=== PATIENT | female | born 1960 | race Caucasian/White ===

== ENCOUNTER 2021-07-16 20:46 | Emergency (ER) | payer BC ==
[~2021-07-16] VITALS: Ht 160 cm; Wt 81.6 kg
--- NOTE | 2021-07-16 20:58 | NUR ---
PT BIBA TO ER BED VIA [facility]
[2021-07-16 21:16] VITALS: BP 162/96
--- NOTE | 2021-07-16 21:16 | NUR ---
PT PLACED IN ROOM 3.
--- NOTE | 2021-07-16 21:16 | NUR ---
PT 61 YEAR OLD FEMALE. BIBA. ALERT AND ORIENTED X4. COMPLAINING OF N/V SINCE 4 PM TODAY. STATES THAT SHE HAS CRAMPING IN HER STOMACH AND THAT SHE HAS FULL BODY MUSCLE ACHES DUE TO THE CRAMPS. PT REPORTS THAT SHE DID NOT TAKE ANYTHING FOR N/V. DENIES FEVER OR ANY COVID-19 SYMPTOMS. PT HAS A ALLERGY TO [employer] DRUGS. MEDICAL HX HTN, DM2, AND HIGH CHOLESTEROL, THYROID ISSUES, AND NEUROPATHY. PT RECIEVED PO ZOFRAN BY EMS, EMS REPORTS IT HELPED AND PT DID NOT EXPERIENCE N/V IN ROUTE. MEDS: SYNTHROID, PROPANOLOL, TRULICITY, XIGDUO, GABAPENTIN, ATORVASTATIN, ASPARIN, MOTRIN.
--- NOTE | 2021-07-16 21:20 | NUR ---
PT UP TO RESTROOM, STEADY GAIT.
[2021-07-16] MEDS ORDERED: ONDANSETRON 4 MG/2 ML VIAL ONE ×2 (23:20→23:21)
[2021-07-16] MEDS ORDERED: ONDANSETRON 4 MG/2 ML VIAL IVP ONE (23:35)
[2021-07-16] MEDS ORDERED: NACL 0.9% 1,000 ML IV ONE (23:35)
[2021-07-16] MEDS ORDERED: KETOROLAC 30 MG/ML VIAL IVP ONE (23:35)
[2021-07-16] MEDS ORDERED: diphenhydrAMINE 50 MG/ML VIAL IVP ONE (23:35)
[2021-07-16] MEDS ORDERED: PROCHLORPERAZINE 10 MG/2 ML VIAL IVP ONE (23:35)
--- NOTE | 2021-07-16 23:40 | NUR ---
PT UP TO RESTROOM, STEADY GAIT.
--- NOTE | 2021-07-16 23:53 | NUR ---
PT LYING IN BED WITH EYES CLOSED, APPEARS TO BE SLEEPING. EQUAL RISE AND FALL OF CHEST. NO ACUTE DISTRESS NOTED. WILL CONTINUE TO MONITOR PT.
--- NOTE | 2021-07-16 23:56 | NUR ---
RADIOLOGY AT BEDSIDE TO TAKE PT TO CT.
[2021-07-17 00:01] LABS: BASOPHILS % (AUTO) 0.1 % (0.0-2.0); EOSINOPHILS # (AUTO) 0.1 K/uL (0-0.4); EOSINOPHILS % (AUTO) 0.6 % (0.0-4.0); HEMATOCRIT 43.6 % (36-48); HEMOGLOBIN 15.1 g/dL (12.0-16.0); LYMPHOCYTES # (AUTO) 0.3 K/uL (2.5-16.5); LYMPHOCYTES % (AUTO) 3.1 % (20.5-51.1); MEAN CORPUSCULAR HEMOGLOBIN 32 pg (27-31); MEAN CORPUSCULAR HGB CONC 35 g/dL (33-37); MEAN CORPUSCULAR VOLUME 91.9 fL (80-94); MONOCYTES # (AUTO) 0.3 K/uL (0.8-1.0); MONOCYTES % (AUTO) 2.8 % (1.7-9.3); NEUTROPHILS # (AUTO) 9.9 K/uL (1.8-7.7); PLATELET COUNT (AUTO) 271 K/uL (140-450); RED BLOOD CELL COUNT(AUTO) 4.74 MIL/uL (4.20-5.40); RED CELL DISTRIBUTION WIDTH 12.4 % (11.6-13.7); WHITE BLOOD COUNT (AUTO) 10.6 K/uL (4.8-10.8)
--- NOTE | 2021-07-17 00:22 | NUR ---
PT LYING IN BED WITH EYES CLOSED, APPEARS TO BE SLEEPING. RN PROVIDED PT WITH WARM BLANKETS FOR COMFORT. EQUAL RISE AND FALL OF THE CHEST. NO ACUTE DISTRESS NOTED. ALL VS ARE STABLE AT THIS TIME. WILL CONTINUE TO MONITOR PT.
[2021-07-17 00:44] LABS: NEUTROPHILS % (AUTO) 93.4 % (42.2-75.2)
[2021-07-17 00:46] LABS: ANION GAP 16.1 (8-16); CARBON DIOXIDE 24.9 mmol/L (21-32); CREATININE 0.8 mg/dL (0.6-1.3)
[2021-07-17 00:53] LABS: ALBUMIN 3.4 g/dL (3.4-5.0)
[2021-07-17] MEDS ORDERED: ONDA-188 SL (01:21)
[2021-07-17 01:48] VITALS: BP 142/86
--- NOTE | 2021-07-17 01:49 | NUR ---
Patient discharged with v/s stable. Written and verbal after care instructions given and explained. Patient alert, oriented and verbalized understanding of instructions. Wheel Chair Assisted TO LOBBY TO WAIT FOR DC TRANSPORTAION. All questions addressed prior to discharge. ID band removed. Patient advised to follow up with PMD. Rx of ZOFRN given. Patient educated on indication of medication including possible reaction and side effects. Opportunity to ask questions provided and answered.
== END 2021-07-17 01:49 | disposition home or self-care (01) ==
LOC: MED 20:46
DX: R11.2 Nausea with vomiting, unspecified (principal); R51.9 Headache, unspecified; R19.7 Diarrhea, unspecified; E11.9 Type 2 diabetes mellitus without complications; I10 Essential (primary) hypertension; Z79.899 Other long term (current) drug therapy
CPT/HCPCS: 36415; 70450; 80053; 85025; 96361; 96374; 96375; 99284; J0780; J1200; J1885; J2405; J7030